=== PATIENT | female | born 1995 | race African-American/Black ===

== ENCOUNTER 2023-07-13 23:12 | Emergency (ER) | payer OTHER ==
[2023-07-14 00:36] LABS: #Eosinphils 0.1 10x3/uL (0.0-0.5); #Monocytes 0.5 10x3/uL (0.0-1.1); #Neutrophils 5.5 10x3/uL (1.5-8.4); %Basophils 0.5 % (0.0-2.0); %Eosinophils 1.6 % (0.0-6.0); %Monocytes 5.5 % (0.0-10.0); %Neutrophils 62.8 % (40.0-75.0); Bilirubin Neg (Negative); Blood, Urine Negative (Negative); Clarity Slightly Cloudy (Clear); Glucose, Urine (Dipstick) Normal (Negative); Hematocrit 31.2 % (34.9-44.5); Hemoglobin 10.6 g/dL (12.0-15.5); Ketone, Urine Negative (Negative); Leukocyte 100 (Negative); Mean Corpuscular Hemoglobin 29.7 pg (27.0-33.0); Mean Corpuscular Volume 87.4 fl (81.6-98.3); Mean Platelet Volume 12.9 fl (7.4-10.4); Nitrite Negative (Negative); Platelet Count 130 10x3/uL (150-450); Protein, Urine (Dipstick) Negative (Neg-Trace); RBC Distribution Width 14.4 % (11.5-14.5); Red Blood Cell (RBC) Count 3.57 10x6/uL (3.90-5.03); Specific Gravity, Urine 1.015 (1.005-1.030); Urobilinogen Normal mg/dL (Less than 2); White Blood Cell (WBC) Count 8.8 10x3/uL (3.5-10.5); pH, Urine 6.5 (5.0-9.0)
[2023-07-14] MEDS ORDERED: Acetaminophen 500 MG TAB ONE (00:39)
[2023-07-14 00:50] LABS: Bacteria/HPF 1+ HPF (None Seen); CAUTI Indications for Culture Pelvic or flank pain; RBC/HPF None Seen HPF (0-3); Squamous Epithelial 0-3 HPF (0-3)
[2023-07-14 00:52] LABS: Urine Culture Reflex No No
[2023-07-14 00:56] LABS: ALT (SGPT) 10 U/L (8-55); AST (SGOT) 10 U/L (5-34); Albumin 3.6 g/dL (3.5-5.0); Alkaline Phosphatase 75 U/L (40-110); Anion Gap 15 mmol/L (10-20); BUN (Urea Nitrogen) 8 mg/dL (7.0-18.7); Bilirubin, Total 0.2 mg/dL (0.2-1.2); Calc. Creatinine Clearance 0 mL/min (70-130); Calcium 9.4 mg/dL (7.8-10.44); Carbon Dioxide 21 mmol/L (22-29); Chloride 106 mmol/L (98-107); Estimated GFR 112; Globulin 3.1 g/dL (2.4-3.5); Glucose 99 mg/dL (70-105); Lipase 12 U/L (8-78); Potassium 3.8 mmol/L (3.5-5.1); Protein, Total 6.7 g/dL (6.0-8.3); Sodium 138 mmol/L (136-145)
[2023-07-14] MEDS ORDERED: Cephalexin 250 MG CAP ONE (01:45)
== END 2023-07-14 02:26 | disposition home or self-care (01) ==
LOC: CSHERS 23:12
DX: N39.0 Urinary tract infection, site not specified (principal); F17.210 Nicotine dependence, cigarettes, uncomplicated
CPT/HCPCS: 80053; 81001; 83690; 85025; 87077; 87086; 87186; 99284